=== PATIENT | male | born 1960 | race Caucasian/White ===

== ENCOUNTER 2016-11-11 05:36 | Emergency (ER) | payer BC ==
[2016-11-11] MEDS ORDERED: Naproxen 550 mg Tab PO STA (05:51)
--- NOTE | 2016-11-11 05:57 | C.PDOC ---
Time Seen by Provider: 11/11/16 05:51 Chief Complaint (Nursing): Back Pain Past Medical History Vital Signs: Last Vital Signs Temp 97.7 F 11/11/16 05:41 Pulse 65 11/11/16 05:41 Resp 20 11/11/16 05:41 BP 136/81 11/11/16 05:41 Pulse Ox 99 11/11/16 05:41 - Social History Hx Tobacco Use: Yes (1 pack per day) Hx Alcohol Use: No Hx Substance Use: No - Immunization History Hx Tetanus Toxoid Vaccination: No Hx Influenza Vaccination: No Hx Pneumococcal Vaccination: No ED Course And Treatment O2 Sat by Pulse Oximetry: 99 Disposition - Disposition Forms: [employer] (Lao)
--- NOTE | 2016-11-11 05:58 | C.PDOC ---
History Of Present Illness 55 y/o male c/o right lower nonradiating back/flank pain for the past 3 days. Pain is intermittent, and not associated with fever, dysuria/hematuria, abdominal pain, extremity weakness, sensory changes, bladder or bowel incontinence, rash. Patient also denies falls/injuries. Time Seen by Provider: 11/11/16 05:51 Chief Complaint (Nursing): Back Pain History Per: Patient History/Exam Limitations: no limitations Onset/Duration Of Symptoms: Days (3) Current Symptoms Are (Timing): Still Present Quality Of Discomfort: "Pain" Severity: Moderate Additional History Per: Patient Past Medical History Reviewed: Historical Data, Nursing Documentation, Vital Signs Vital Signs: Last Vital Signs Temp 97.7 F 11/11/16 05:41 Pulse 65 11/11/16 05:41 Resp 20 11/11/16 05:41 BP 136/81 11/11/16 05:41 Pulse Ox 99 11/11/16 06:06 - Medical History PMH: No Chronic Diseases Family History: States: No Known Family Hx - Social History Hx Tobacco Use: Yes (1 pack per day) Hx Alcohol Use: No Hx Substance Use: No - Immunization History Hx Tetanus Toxoid Vaccination: No Hx Influenza Vaccination: No Hx Pneumococcal Vaccination: No Review Of Systems Except As Marked, All Systems Reviewed And Found Negative. Constitutional: Negative for: Fever Cardiovascular: Negative for: Chest Pain Respiratory: Negative for: Cough, Shortness of Breath Gastrointestinal: Negative for: Nausea, Vomiting, Abdominal Pain, Diarrhea Genitourinary: Negative for: Dysuria, Hematuria Musculoskeletal: Positive for: Back Pain (Lower) Physical Exam - Physical Exam Appears: Well, Non-toxic, In Acute Distress (in mild pain ) Skin: Warm, Dry, No Rash Oral Mucosa: Moist Cardiovascular: Rhythm Regular Respiratory: Normal Breath Sounds, No Rales, No Rhonchi, No Wheezing Gastrointestinal/Abdominal: Normal Exam, Bowel Sounds, Soft, No Tenderness Back: Normal Inspection, No CVA Tenderness, No Vertebral Tenderness, No Paraspinal Tenderness Extremity: Normal ROM Neurological/Psych: Oriented x3, Normal Motor, Normal Sensation Gait: Steady ED Course And Treatment O2 Sat by Pulse Oximetry: 99 (RA) Pulse Ox Interpretation: Normal Progress Note: Plans: UA ordered and reviewed. Patient given PO Naprosyn and Flexeril. UA shows blood - CT scan abd/pelvis ordered to r/o kidney stone. Disposition - Disposition Disposition Time: 07:00 Condition: STABLE Forms: [employer] (Slovenian) - Clinical Impression Clinical Impression: Right low back pain, Microscopic hematuria - Scribe Statement The provider has reviewed the documentation as recorded by the Scribe Rhea reynolds All medical record entries made by the Scribe were at my direction and personally dictated by me. I have reviewed the chart and agree that the record accurately reflects my personal performance of the history, physical exam, medical decision making, and the department course for this patient. I have also personally directed, reviewed, and agree with the discharge instructions and disposition. Physician Patient Turnover Patient Signed Over To: Glenn Cameron Handoff Comments: pending ct abd/pelvis, reassess
[2016-11-11 06:10] LABS: RBC URINE 2 /hpf (0-3); URINE BILIRUBIN NEGATIVE (NEGATIVE); URINE BLOOD 1+ (NEGATIVE); URINE COLOR Yellow (YELLOW); URINE GLUCOSE (UA) NORMAL (Normal); URINE KETONE NEGATIVE (NEGATIVE); URINE LEUKOCYTE ESTERASE NEG Leu/uL (Negative); URINE PROTEIN NEGATIVE (NEGATIVE); URINE UROBILINOGEN NORMAL mg/dL (0.2-1.0); WBC URINE < 1 /hpf (0-5)
[2016-11-11] MEDS ORDERED: Naproxen 550 mg Tab PO ONE (06:15)
[2016-11-11 06:59] LABS: BASO % 0.4 % (0.0-2.0); EOS # 0.3 K/uL (0.0-0.7); EOS % 3.1 % (0.0-4.0); HEMATOCRIT 47.9 % (35.0-51.0); LYMPH # 3.3 K/uL (1.0-4.3); MEAN CELL VOLUME 88.7 fL (80.0-94.0); MEAN CORPUSCULAR HEMOGLOBIN 30.3 pg (27.0-31.0); MEAN CORPUSCULAR HGB CONC 34.1 g/dL (33.0-37.0); MEAN PLATELET VOLUME 7.5 fL (7.2-11.7); MONO # 0.8 K/uL (0.0-0.8); MONO % 9.8 % (0.0-10.0); NRBC % 0.1 % (0.0-2.0); RED CELL DISTRIBUTION WIDTH 13.9 % (11.5-14.5); WHITE BLOOD COUNT 8.7 K/uL (4.8-10.8)
[2016-11-11 07:11] LABS: ALB/GLOB RATIO 1.2 (1.0-2.1); ALKALINE PHOSPHATASE 60 U/L (38-126); ALT/SGPT 36 U/L (21-72); AST/SGOT 19 U/L (17-59); BILIRUBIN,TOTAL 0.7 mg/dL (0.2-1.3); BLOOD UREA NITROGEN 12 mg/dL (9-20); CALCIUM 8.4 mg/dl (8.6-10.4); CARBON DIOXIDE 25 mmol/L (22-30); CHLORIDE 101 mmol/L (98-107); GFR AFRICAN-AMERICAN > 60; GLUCOSE,RANDOM 93 mg/dL (75-110); POTASSIUM 4.4 mmol/L (3.6-5.2); SODIUM 139 mmol/L (132-148); TOTAL PROTEIN 7.2 g/dL (6.3-8.3)
--- NOTE | 2016-11-11 08:33 | CT ---
PROCEDURE: CT Abdomen and Pelvis without intravenous contrast HISTORY: right flank/back pain, hematuria, r/o stone COMPARISON: None. TECHNIQUE: Helical CT of the abdomen pelvis was performed out oral or intravenous contrast as per referring physician request. There is a clinical history of right flank pain. Contrast Dose: None Radiation dose: Total exam DLP = 1036 mGy-cm. This CT exam was performed using one or more of the following dose reduction techniques: Automated exposure control, adjustment of the mA and/or kV according to patient size, and/or use of iterative reconstruction technique. FINDINGS: LOWER THORAX: Unremarkable. LIVER: Unremarkable. No gross lesion or ductal dilatation. GALLBLADDER AND BILE DUCTS: Unremarkable. PANCREAS: Unremarkable. No gross lesion or ductal dilatation. SPLEEN: Unremarkable. ADRENALS: Unremarkable. No mass. KIDNEYS AND URETERS: No radiodense urolithiasis, obstructive uropathy or definitive asymmetric perinephric reaction is appreciated delete. Urinary bladder appears unremarkable grossly. VASCULATURE: Unremarkable. No aortic aneurysm. BOWEL: Few right hemicolon diverticula are identified without diverticulitis at this time. No obstruction. No gross mural thickening. APPENDIX: The appendix appears normal with the cecum appear relatively cephalad compared is normal position. The appendix is retrocecal and approaches the lateral right upper quadrant. PERITONEUM: Unremarkable. No free fluid. No free air. LYMPH NODES: Unremarkable. No enlarged lymph nodes. BLADDER: Unremarkable. REPRODUCTIVE: Borderline prostate gland enlargement. BONES: No acute fracture. OTHER FINDINGS: None. IMPRESSION: 1. Nonacute appearing unenhanced and pelvis CT examination including bilateral kidneys ureters and urinary bladder. 2. A few right-sided diverticular appreciated involving the ascending colon which are nonacute.
[2016-11-11 10:34] VITALS: BP 123/80; PULSE 68; RESP 18; TEMP 98.9; O2SAT 100
== END 2016-11-11 10:39 | disposition home or self-care (01) ==
LOC: C.ER 05:36
DX: M54.5 Low back pain (principal); R31.29 Other microscopic hematuria

== ENCOUNTER 2017-05-19 06:33 | Emergency (ER) | payer BC ==
[2017-05-19 06:46] VITALS: O2SAT 98
[2017-05-19] MEDS ORDERED: Lidocaine 5% Patch TD STA (07:50)
[2017-05-19] MEDS ORDERED: Lidocaine 5% Patch TD ONE (07:55)
[2017-05-19 08:21] LABS: URINE BILIRUBIN NEGATIVE (NEGATIVE); URINE BLOOD 1+ (NEGATIVE); URINE CLARITY Clear (Clear); URINE COLOR Yellow (YELLOW); URINE GLUCOSE (UA) NORMAL (Normal); URINE LEUKOCYTE ESTERASE NEG Leu/uL (Negative); URINE PROTEIN NEGATIVE (NEGATIVE); URINE UROBILINOGEN NORMAL mg/dL (0.2-1.0)
--- NOTE | 2017-05-19 08:40 | RAD ---
PROCEDURE: Radiographs of the Lumbar Spine. HISTORY: pain COMPARISON: No prior. FINDINGS: BONES: Vertebral bodies maintained in height. Normal alignment is maintained. There is minimal levo scoliotic curvature of the lumbar spine. DISC SPACES: There is narrowing of the L2-3 intervertebral disc space with subchondral sclerosis and osteophytes, consistent with degenerative disc disease. The remaining disc spaces are maintained in height. OTHER FINDINGS: None. IMPRESSION: Degenerative disc disease at L2-3. No evidence fracture/dislocation
--- NOTE | 2017-05-19 09:34 | C.PDOC ---
History Of Present Illness 56yo male, presents to ED with complaints of lower back pain for the past 3-4 days. 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 He states the pain is worsened by moving around but better when he is laying flat. Patient denies any other injury, trauma, weakness, numbness, bowel or bladder dysfunction. No other complaints. Time Seen by Provider: 05/19/17 07:39 Chief Complaint (Nursing): Back Pain History Per: Patient History/Exam Limitations: no limitations Onset/Duration Of Symptoms: Days Current Symptoms Are (Timing): Still Present Quality Of Discomfort: "Pain" Associated Symptoms: denies: Incontinence, New Weakness, New Numbness Exacerbating Factor(s): Movement Past Medical History Reviewed: Historical Data, Nursing Documentation, Vital Signs Vital Signs: Last Vital Signs Temp 98.5 F 05/19/17 09:50 Pulse 60 05/19/17 09:50 Resp 18 05/19/17 09:50 BP 142/86 05/19/17 09:50 Pulse Ox 98 05/19/17 09:50 - Medical History PMH: No Chronic Diseases Surgical History: No Surg Hx Family History: States: Unknown Family Hx - Social History Hx Tobacco Use: Yes (1 pack per day) Hx Alcohol Use: No Hx Substance Use: No - Immunization History Hx Tetanus Toxoid Vaccination: No Hx Influenza Vaccination: No Hx Pneumococcal Vaccination: No Review Of Systems Except As Marked, All Systems Reviewed And Found Negative. Constitutional: Negative for: Fever, Chills Genitourinary: Negative for: Dysuria, Incontinence, Hematuria Musculoskeletal: Positive for: Back Pain Neurological: Negative for: Weakness, Numbness Physical Exam - Physical Exam Appears: Non-toxic, No Acute Distress Skin: Normal Color, Dry Head: Normacephalic Eye(s): bilateral: Normal Inspection Neck: Normal ROM, Supple Chest: Symmetrical Cardiovascular: Rhythm Regular Respiratory: Normal Breath Sounds Back: No Vertebral Tenderness, Muscle Spasm, Paraspinal Tenderness (right paralumbar tenderness) Extremity: Normal ROM, No Deformity Neurological/Psych: Oriented x3, Normal Motor, Normal Sensation ED Course And Treatment O2 Sat by Pulse Oximetry: 98 (RA) Pulse Ox Interpretation: Normal - Other Rad XR Lumbar Spine X-Ray: Read By Radiologist Interpretation: PROCEDURE: Radiographs of the Lumbar Spine. HISTORY: pain. COMPARISON: No prior. FINDINGS: BONES: Vertebral bodies maintained in height. Normal alignment is maintained. There is minimal levo scoliotic curvature of the lumbar spine. DISC SPACES: There is narrowing of the L2-3 intervertebral disc space with subchondral sclerosis and osteophytes, consistent with degenerative disc disease. The remaining disc spaces are maintained in height. OTHER FINDINGS: None. IMPRESSION: Degenerative disc disease at L2-3. No evidence fracture/dislocation Progress Note: XR Lumbar spine ordered and reviewed. Patient given Toradol 30 mg IM and lidoderm patch. He reports improvement of pain, is ambulatory and is stable for discharge home. Patient informed to follow up with PCP in 2-3 days. Disposition - Disposition Disposition: HOME/ ROUTINE Disposition Time: 09:31 Condition: STABLE Additional Instructions: Follow up with your PMD within 1-2 days. Return to ED if feel worse. Prescriptions: Lidocaine 5% [Lidoderm] 1 patch TP DAILY #30 patch Ibuprofen [Motrin Tab] 600 mg PO Q8 #30 tab oxyCODONE/Acetaminophen [Percocet 5/325 mg Tab] 1 tab PO QID PRN #20 tab PRN Reason: Pain diaZEpam [Valium] 2 mg PO TID #15 tab Instructions: Low Back Pain in Adults Forms: [facility] (Panamanian), Work Excuse - Clinical Impression Clinical Impression: Low back pain - PA / MEDICAL EQUIPMENT TECHNICIAN / Resident Statement MD/DO has reviewed & agrees with the documentation as recorded. - Scribe Statement The provider has reviewed the documentation as recorded by the Scribe (Salud Man) Provider Attestation: All medical record entries made by the Scribe were at my direction and personally dictated by me. I have reviewed the chart and agree that the record accurately reflects my personal performance of the history, physical exam, medical decision making, and the department course for this patient. I have also personally directed, reviewed, and agree with the discharge instructions and disposition.
[2017-05-19 09:51] VITALS: BP 142/86; PULSE 60; RESP 18; TEMP 98.5
== END 2017-05-19 09:59 | disposition home or self-care (01) ==
LOC: C.ER 06:33
DX: M54.5 Low back pain (principal); F17.210 Nicotine dependence, cigarettes, uncomplicated
CPT/HCPCS: 72100; 81001; 96372; 99285; J1885